=== PATIENT | male | born 1940 | race Caucasian/White ===

== ENCOUNTER → 2017-07-03 | Outpatient (CLI) | payer OTHER, BC ==
--- NOTE | ~2017-07-03 | S ---
[facility] [place] [address] SURGICAL PATH RPT PROCEDURE Name: MAGUE HDEZ Room #: REG PAOLO Sandoval.#: [id number] Admission: 07/03/17 Date of : 38 Discharge: Report #: [id number] Path Case #: [id number] PATHOLOGY REPORT COLLECTION DATE: 07/03/2017 RECEIVED DATE: 07/03/2017 SUBMITTING PHYS: Dr. Rusty Mcmahan OTHER PHYS: Dr. 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 "Gastritis", biopsy: - Gastric mucosa with mild reactive changes and mild chronic inflammation. - Negative H. pylori immunohistochemical stain (block A1); control reacted appropriately. B. 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 C. "Esophagus", biopsy: - Esophageal squamous mucosa and abundant gastric cardiac type mucosa with mild reactive changes, mild chronic inflammation and small focus of intestinal metaplasia; no dysplasia seen. 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 Clinical and endoscopic correlation is required. (CLW:mone; 07/04/2017) PATHOLOGIST: Malena Tian M.D. REPORT ELECTRONICALLY SIGNED BY: Malena Tian M.D. DATE/TIME: 07/04/2017 13:52 * * * * * * * * * * * * GROSS PATHOLOGY: A. Received in formalin labeled "DOMINIC Santos gastritis," are 5 segments of edouard soft tissue measuring 1.4 x 0.8 x 0.3 cm in aggregate dimensions and ranging from 0.2 to 0.6 cm in maximum dimension. The specimen is submitted entirely in cassette A1. [address] [address] SURGICAL PATH RPT PROCEDURE Name: MAGUE HDEZ Room #: REG [facility].#: [id number] Admission: 07/03/17 Date of : 38 Discharge: Report #: [id number] Path Case #: [id number] B. Received in formalin labeled "DOMINIC Santos, cardia of stomach," is a 0.8 x 0.7 x 0.8 cm polypoid piece of edouard soft tissue. The margin is inked and the tissue is sectioned perpendicular to the margin and submitted in its entirety in cassette B1. C. Received in formalin labeled "DOMINIC Santos distal esophagus," are 5 segments of edouard soft tissue measuring 1.3 x 0.9 x 0.3 cm in aggregate dimensions and ranging from 0.3 to 0.5 cm in maximum dimension. The specimen is submitted entirely in cassette C1. (TSD; 07/03/2017) CLINICAL HISTORY: Pre-OP DX: GERD Post-OP DX: Gastritis, gastric polyps, dysphagia INITIAL CPT CODE(S): A; 97907, 05233 B; 69285 C; 94517 Professional services performed by [facility] at [facility] [address], [place] [address] Technical services performed by [facility] at [address] [place] [address], [address], [place] [address]. [facility] [address] [place] [address] PHONE: [phone] DIRECTOR: Thompson Juárez M.D. * * * END OF REPORT * * *
--- NOTE | ~2017-07-03 | P ---
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 He also has intermittent solid food dysphagia and has required dilation in the past. PREOPERATIVE DIAGNOSES: Worsening reflux symptoms on therapy and solid food dysphagia. POSTOPERATIVE DIAGNOSES: 1. Moderate diffuse gastritis with ulcers. 2. 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 4. Dysphagia. MEDICATIONS: Deep sedation with propofol per Anesthesia. SPECIMEN: 1. Biopsies of gastritis. 2. Gastric polyps x 2. PROCEDURE: EGD with snare polypectomy and biopsy. FINDINGS: Prior to propofol sedation, procedure of upper endoscopy and dilation was discussed with the patient as well as potential risks and its complications. He indicates he understands and desires to proceed. DESCRIPTION OF PROCEDURE: With the patient in left lateral decubitus position, the Fuji video endoscope was inserted in the cervical esophagus under direct vision without difficulty. Examination of this organ through its entire length revealed normal esophageal mucosa down to the squamocolumnar junction. The squamocolumnar junction was irregular in its course, but obvious Garcia mucosa was not seen. He could have a short segment of Garcia's and due to his history, multiple biopsies were obtained. No strictures or masses were seen. A significant hiatus hernia was not seen. The scope was advanced into the stomach, which was examined on end view as well as retroflexed views. He was noted to have a diffuse gastritis to a moderate degree primarily in the antrum of the stomach. No ulcers were seen. No bleeding lesions were seen. However, upon retroflexion, 2 red and somewhat friable polyps were seen in the cardia of the stomach. The largest was sessile and about 5 mm. The other one was about 3-4 mm and less bulky. Both removed by cold snare polypectomy. No mass lesions [address] [address] PROCEDURE REPORT Name: MAGUE HDEZ Room #: REG [facility] Lori.#: [id number] Admission: 07/03/17 Attend Phys: Rusty Mcmahan MD Discharge: Date of : 39 Report #: [id number] were seen. The pylorus, duodenal bulb and postbulbar sweep were all inspected and noted to be within normal limits. At that point, the scope was slowly withdrawn and careful circumferential views were obtained. Biopsies obtained of the gastritis. Following the withdrawal of the scope, he was dilated with passage of 50-Urdu Brooke dilator. There was no resistance. CONDITION OF THE PATIENT UPON DISCHARGE: Following procedure, the patient was drowsy and he will be discharged home when fully ambulatory. INSTRUCTIONS TO THE PATIENT AND FAMILY AT THE TIME OF DISCHARGE: We will follow up on biopsies as well as the path report of the polyps obtained today. If there is evidence of H. pylori, he may benefit from antibiotic treatment. Polyps removed due to the fact he is on Eliquis and they were somewhat friable and may be a source of anemia or bleeding for the patient. As far as his dysphagia and obvious stricturing was not seen, would suggest he return on an as-needed basis for dilation due to symptoms. We will also follow up on biopsy of the Garcia mucosa. If there is no Garcia mucosa on today's biopsy, I do not see that he will need to continue routine surveillance for Garcia mucosa. As noted, he was having increasing reflux symptoms on omeprazole. Again, the esophageal mucosa was normal. We will have him increase his omeprazole to 20 mg twice daily for about 6 weeks and then he may reduce back to 1 daily. He may increase or decrease the dose as needed based on his symptoms. If he can take less than daily omeprazole, he may do so, but it sounds as if he would likely require it on a fairly regular basis. The patient is morbidly obese and weight loss would be helpful with regard to his reflux. He does have diabetes. There was not a significant amount of retained solids or liquids in the stomach. However, if he should continue to have problems, a gastric emptying study at a later date may be indicated. <ELECTRONICALLY SIGNED> By: Rusty Mcmahan MD 07/03/17 [id number] Rusty Mcmahan MD /nt
== END | disposition home or self-care (01) ==
LOC: GI 08:11
DX: K25.9 Gastric ulcer, unspecified as acute or chronic, without hemorrhage or perforation (principal); K21.9 Gastro-esophageal reflux disease without esophagitis; K31.7 Polyp of stomach and duodenum

== ENCOUNTER → 2018-08-29 | Outpatient (CLI) | payer OTHER, BC | LOC: RAD 08:37 | DX: J44.9 Chronic obstructive pulmonary disease, unspecified (principal) ==

== ENCOUNTER → 2018-11-29 | Outpatient (CLI) | payer OTHER, BC ==
[~2018-11-29] VITALS: Ht 177.8 cm; Wt 118.4 kg
[~2018-11-29] MED LIST: ALLEGRA ALLERG180 MG PO; ALLOPURINOL 10100 M1 PO; APAP650 PO; CENTRUM SILVER1 EAC2 PO; COLESEVELAM HC625 MG PO; COZAAR 25 MG TA25 M2 PO; DEMADEX20 MG PO; DIPHENHIST50 MG PO; ELIQUIS5 MG PO; FISH OIL 1,001000 M2 PO; FLOMAX0.4 MG PO; FLONASE 0.05%50 MCG NASAL; HUMALOG100 UNIT/1 SUBQ; LANTUS SUBQ; MELATONIN5 M1 PO; MIRALAX17 GM PO; MUCINEX600 MG PO; NITROGLYCERIN0.4 MG SUBLING; NYSTATIN100000 UNI PO; PRILOSEC 20 MG20 MG PO; PROAIR HFA8.5 GM INH; SINGULAIR 10 MG10 M1 PO; STIOLTO RESPIMAT4 GM INH; TOPROL XL100 MG PO; TRAZODONE HCL100 MG PO; VICTOZA0.6 MG/0.1 SUBQ; VITAMIN D2000 UNIT PO
--- NOTE | 2018-11-30 15:05 | PATH ---
[facility] [address] [place] [address] PATHOLOGY RPT PROCEDURE Name: MAGUE CASTRO Room #: REG PAOLO Sandoval.#: [id number] ������������������ Admission: 11/29/18 ������������������ Date of : 39 Discharge: Report #: [id number] Path Case #: [id number] [facility] Accession Number: [id number] . 01 Material submitted: . PART A: stomach - BX GASTRITIS R/P H-PYLORI PART B: esophagus - BX GE JUNCTION R/O BARRETTS PART C: cecum - BX POLYP AT CECUM PART D: colon - BX POLYP AT PROXIMAL TRANSVERSE COLON. Modifiers: proximal, transverse PART E: colon - BX POLYP AT 50CM PART F: colon - BX POLYP AT 40CM . 01 Clinical history: . Pre-OP DX: Hx polyps, Garcia's Post-OP DX: Hx Garcia's, gastritis, colon polyps, hemorrhoids . 02 Diagnosis: A. Gastric biopsy, "biopsy gastritis": - Mild chronic reactive gastropathy. - The immunoperoxidase stain for H. pylori is negative. . B. Squamous and glandular mucosa, "GE junction biopsy: - Reflux esophagitis with reactive squamous and glandular mucosa and chronic inflammation. - There is no definite goblet cell metaplasia, dysplasia or malignancy. . C. Colonic mucosa, "biopsy polyp at cecum": - Changes consistent with early tubular adenoma. - There is no evidence of high-grade dysplasia or malignancy. . D. Colonic mucosa, "biopsy polyp at proximal transverse colon": - Polypoid colonic mucosa with early hyperplastic changes. - There is no evidence of adenomatous change, high-grade dysplasia or malignancy. . E. Colonic mucosa, "biopsy polyp at 50 cm": - Tubular adenoma. - There is no evidence of high-grade dysplasia or malignancy. . F. Colonic mucosa, "biopsy polyp at 40 cm": - Tubular adenoma. - There is no evidence of high-grade dysplasia or malignancy. . (SHA:josie; 11/30/2018) SIM/11/30/2018 . [address] [address] PATHOLOGY RPT PROCEDURE Name: KETTYMAGUEDAVID MCDANIEL Room #: REG Loreta Melgoza#: [id number] ������������������ Admission: 11/29/18 ������������������ Date of : 39 Discharge: Report #: [id number] Path Case #: [id number] Electronically signed: . Gerber Mon MD, Pathologist NPI- [id number] . 01 Gross description: . A. Received in formalin labeled "Mague Castro, DOMINIC gastritis, rule out H. pylori," are 6 segments of edouard soft tissue measuring 1.4 x 1.2 x 0.2 cm in aggregate dimensions and ranging from 0.1 to 0.7 cm in maximum dimension. The specimen is submitted entirely in cassette A1. . B. Received in formalin labeled "Mague Castro, BX GE junction, rule out Garcia's," are 4 segments of edouard soft tissue measuring 1.2 x 0.7 x 0.2 cm in aggregate dimensions and ranging from 0.4 to 0.6 cm in maximum dimension. The specimen is submitted entirely in cassette B1. . C. Received in formalin labeled "Mague Castro, BX polyp at cecum," is a single segment of edouard soft tissue measuring 0.6 cm in maximum dimension. The specimen is entirely submitted in cassette C1. . D. Received in formalin labeled "Mague Castro, BX polyp at proximal transverse colon," is a single segment of edouard soft tissue measuring 0.6 cm in maximum dimension. The specimen is entirely submitted in cassette D1. . E. Received in formalin labeled "Mague Castro, BX polyp at 50 cm," are 2 segments of edouard soft tissue measuring 0.7 x 0.2 x 0.2 cm in aggregate dimensions and ranging from 0.3 to 0.4 cm in maximum dimension. The specimen is submitted entirely in cassette E1. . F. Received in formalin labeled "Mague Castro, BX polyp at 40 cm," and is a single segment of edouard soft tissue measuring 0.4 cm in maximum dimension. The specimen is entirely submitted in cassette F1. (TSD; 11/29/2018) TOB/TOB . 02 Pathologist provided ICD-10: K31.9, K21.0, D12.0, D12.6, Z86.010 . 02 CPT . 353147, 036675, 743134, 746459, 760967, 655889, E09131 Specimen Comment: A courtesy copy of this report has been sent to Specimen Comment: [phone], . Specimen Comment: Report sent to / DR PETER Performed at: [address], [place], [place] [address] MD Rambo Cole MD Phone: [phone] Performed at: 02 [facility] [address] [place] [address] PATHOLOGY RPT PROCEDURE Name: MAGUE CASTRO Room #: REG PAOLO Melgoza#: [id number] ������������������ Admission: 11/29/18 ������������������ Date of : 39 Discharge: Report #: [id number] Path Case #: [id number] [address] [facility], [place] [id number] [address] Kay MD Phone: [phone]
--- NOTE | 2018-11-30 16:16 | P ---
[facility] [place] [address] [place] [address] PROCEDURE REPORT Name: MAGUE HDEZ Room #: REG PAOLO Catracho.#: [id number] Admission: 11/29/18 ������������������ Attend Phys: Rusty Mcmahan MD Discharge: ������������������ Date of : 39 Report #: [id number] THIS REPORT FOR: //name// CC: Rusty Willis BRIEF HISTORY: The patient is a 78-year-old male with history of Garcia esophagus. He also has reflux disease. He takes omeprazole 20 mg daily, reports that he has been having bouts of reflux symptoms recently. PREOPERATIVE DIAGNOSES: History of Garcia's and reflux disease. POSTOPERATIVE DIAGNOSES: 1. History of Garcia esophagus. 2. Diffuse gastritis. MEDICATIONS: Deep sedation with propofol per anesthesia. SPECIMENS: 1. Biopsies of gastritis, rule out H pylori. 2. Biopsy of GE junction, rule out Garcia. ESTIMATED BLOOD LOSS: 3 mL. PROCEDURE: EGD with biopsy. FINDINGS: With the patient in left lateral decubitus position, the Olympus video endoscope was inserted in cervical esophagus under direct vision without difficulty. Examination of his organ through its entire length revealed normal esophageal mucosa down the squamocolumnar junction. DESCRIPTION OF PROCEDURE: The patient has history of Garcia esophagus with intestinal metaplasia on biopsies. He does not have a significant area of Garcia. In some areas, the squamocolumnar junction is somewhat irregular, but intact without evidence of ulcers, erosions, or mass lesions. Biopsies were obtained of the GE junction. A significant hiatus hernia was not seen. Scope was advanced in the stomach, which was examined on end view as well as retroflexed views. There was noted to be a pattern of moderate gastritis in the antrum and stomach, no ulcers or erosions were seen. Biopsies obtained to evaluate for H. pylori. Upon retroflexion, no mass lesions are seen. A hiatus hernia was not seen. The pylorus, duodenal bulb, postbulbar sweep were inspected and noted to be unremarkable. At that point, scope was slowly withdrawn and careful circumferential views obtained. The patient tolerated the procedure well. We also obtained biopsies along the GE junction to exclude Garcia mucosa. [facility] [address] [place] [address] PROCEDURE REPORT Name: MAGUE HDEZ [facility] #: [facility] [id number] Admission: 11/29/18 ������������������ Attend Phys: Rusty Mcmahan MD Discharge: ������������������ Date of : 39 Report #: [id number] CONDITION OF THE PATIENT UPON DISPOSITION: Following procedure, the patient is drowsy, arousable, and he was discharged home when fully ambulatory. INSTRUCTIONS TO THE PATIENT AND FAMILY AT THE TIME OF DISCHARGE: The patient reports increased symptoms of reflux, but I do not see esophagitis based on symptoms. I have increased his omeprazole to 40 mg once daily. As far as the Garcia's, he certainly does not have a significant segment of Gacria's. We will follow up on biopsies. I would wonder if previous biopsies reflected intestinal metaplasia of the cardia. If he does not have evidence of Garcia, there are likely be minimal benefit from continued routine followup. He should continue his PPI. Proceed with colonoscopy at this time. ��������������������������������������������� <ELECTRONICALLY SIGNED> ���������������������������������������� By: Rusty Mcmahan MD ��������������������������������������������� 11/30/18 1616 0918 191 Rusty Mcmahan MD /nt
--- NOTE | 2018-11-30 16:16 | P ---
[facility] [place] [address] [address] [place] [address] PROCEDURE REPORT Name: MAGUE HDEZ Room #: REG [facility].#: [id number] Admission: 11/29/18 ������������������ Attend Phys: Rusty Mcmahan MD Discharge: ������������������ Date of : 39 Report #: [id number] THIS REPORT FOR: //name// CC: Rusty Willis MD DATE OF SERVICE: 11/29/2018 BRIEF HISTORY: The patient is a 78-year-old male with history of colon polyps for high risk screening colonoscopy. PREOPERATIVE DIAGNOSIS: History of colon polyps. POSTOPERATIVE DIAGNOSES: 1. Colon polyps. 2. Internal hemorrhoids. MEDICATIONS: Deep sedation with propofol per Anesthesia. SPECIMENS: 1. Diminutive polyp, cecum. 2. Diminutive polyp, proximal transverse colon. 3. Diminutive polyp at 50 cm. 4. Diminutive polyp at 40 cm. ESTIMATED BLOOD LOSS: 3 mL. PROCEDURE: Colonoscopy to cecum and terminal ileum with biopsy. FINDINGS: Prior to propofol sedation, the procedure of colonoscopy discussed with the patient as well as potential risks and its complications. He indicates he understands and desires to proceed. DESCRIPTION OF PROCEDURE: The patient placed in left lateral decubitus position, digital examination was completed, which revealed no abnormalities. Subsequently, the Olympus video colonoscope was introduced in the rectum and advanced under direct vision to the cecum. Done with minimal difficulty. The cecum was identified by the ileocecal valve and the appendiceal orifice. I was able to visualize the distal segment of the terminal ileum, which was inspected and noted to be unremarkable. At that point, the scope was slowly withdrawn and careful circumferential views obtained including retroflexion of the scope in the ascending colon. Upon slow withdrawal of the scope, the mucosa was inspected and noted to be within normal limits. The prep was good. As we withdrew the scope, a diminutive polyp was identified, removed from the cecum, another from the proximal transverse colon, a third at 50 cm and a fourth at [address] [address] PROCEDURE REPORT Name: MAGUE HDEZ Room #: REG [facility].#: [id number] Admission: 11/29/18 ������������������ Attend Phys: Rusty Mcmahan MD Discharge: ������������������ Date of : 39 Report #: [id number] cm. Otherwise, the mucosa was within normal limits, normal vascular pattern and normal light reflex. No additional mucosal abnormalities were seen. The scope was withdrawn in the rectum. Upon retroflexion, small to moderate internal hemorrhoids were seen. Scope was withdrawn. The patient tolerated the procedure well. CONDITION OF THE PATIENT UPON DISCHARGE: Following procedure, the patient drowsy, aroused, conversant and will be discharged home when fully ambulatory. INSTRUCTIONS TO THE PATIENT AND FAMILY AT THE TIME OF DISCHARGE: We will follow up on the path report. If 3 or more of these polyps are adenomas, he should return in 3 years, otherwise he should return in 5 years. He will otherwise return to the care of Dr. Barb Willis and return to see me as needed. Last colonoscopy was about 5 years ago. Withdrawal time to cecum was 17 minutes 28 seconds. ��������������������������������������������� <ELECTRONICALLY SIGNED> ���������������������������������������� By: Rusty Mcmahan MD ��������������������������������������������� 11/30/18 1616 0954 27 Rusty Mcmahan MD /nt
== END | disposition home or self-care (01) ==
LOC: GI 06:59
DX: Z12.11 Encounter for screening for malignant neoplasm of colon (principal); Z86.010 Personal history of colon polyps; D12.0 Benign neoplasm of cecum; D12.5 Benign neoplasm of sigmoid colon; K63.5 Polyp of colon; K21.0 Gastro-esophageal reflux disease with esophagitis; K31.9 Disease of stomach and duodenum, unspecified; K64.8 Other hemorrhoids; K29.70 Gastritis, unspecified, without bleeding; I10 Essential (primary) hypertension; E11.9 Type 2 diabetes mellitus without complications; G47.33 Obstructive sleep apnea (adult) (pediatric); I48.91 Unspecified atrial fibrillation; J43.9 Emphysema, unspecified; E78.5 Hyperlipidemia, unspecified; Z95.5 Presence of coronary angioplasty implant and graft; Z95.810 Presence of automatic (implantable) cardiac defibrillator; Z79.01 Long term (current) use of anticoagulants; Z79.4 Long term (current) use of insulin; Z96.653 Presence of artificial knee joint, bilateral; Z87.891 Personal history of nicotine dependence; Z96.641 Presence of right artificial hip joint; Z98.41 Cataract extraction status, right eye; Z98.42 Cataract extraction status, left eye; Z98.890 Other specified postprocedural states; Z79.899 Other long term (current) drug therapy
CPT/HCPCS: 62110; 62900

== ENCOUNTER → 2020-10-21 | Outpatient (CLI) | payer OTHER, BC | LOC: RAD 09:30 | PROVIDERS: ATTEND Internal Medicine | DX: J44.9 Chronic obstructive pulmonary disease, unspecified (principal) ==

== ENCOUNTER → 2021-07-28 | Outpatient (CLI) | payer OTHER, BC | LOC: RAD 07:23 | PROVIDERS: ATTEND Internal Medicine | DX: I51.7 Cardiomegaly (principal); R06.00 Dyspnea, unspecified; Z95.810 Presence of automatic (implantable) cardiac defibrillator ==

== ENCOUNTER → 2021-08-09 | Outpatient (CLI) | payer OTHER, BC | LOC: RAD 09:34 | PROVIDERS: ATTEND Internal Medicine | DX: I50.9 Heart failure, unspecified (principal) ==